=== PATIENT | male | born 1965 | race American Indian/Alaskan Native ===

== ENCOUNTER 2016-06-15 13:48 | Emergency (ER) | payer MEDICAID, OTHER ==
[2016-06-15 13:56] VITALS: BP 149/95
--- NOTE | 2016-06-15 14:05 | EDM.PDOC ---
ED HPI Skin/Rash - General Chief Complaint: Laceration Stated Complaint: CUT ON LEFT SIDE OF FACE Time Seen by Provider: 06/15/16 13:57 Source: Reports: Patient History Limitations: Reports: No limitations (and) - History of Present Illness INITIAL COMMENTS - FREE TEXT/NARRATIVE: patient fell on some stairs and sustained a laceration to his left ear. No loss of consciousness. laceration along the superior daisy of anti-helix Timing: Reports: still present Location, Skin: Reports: head, other (left ear antihelix) - Related Data Allergies Allergy/AdvReac Type Severity Reaction Status Date / Time No Known Allergies Allergy Verified 03/17/16 12:23 Home Meds: Ambulatory Orders Medication Instructions Recorded Confirmed Acetaminophen [Tylenol] 4 tab PO ASDIRECTED PRN 03/17/16 06/15/16 Lisinopril [Lisinopril] 20 mg PO DAILY 03/17/16 06/15/16 atorvaSTATin [Lipitor] 20 mg PO DAILY 03/17/16 06/15/16 Aspirin 1 tab PO DAILY 06/15/16 06/15/16 Naproxen [Naprosyn] 1 tab PO BID 06/15/16 06/15/16 Past Medical History HEENT History: Reports: Impaired vision Other HEENT History: needs glasses Cardiovascular History: Reports: High cholesterol, Hypertension Respiratory History: Reports: None Gastrointestinal History: Reports: GERD Genitourinary History: Reports: None Musculoskeletal History: Reports: RA Neurological History: Reports: None Psychiatric History: Reports: None Endocrine/Metabolic History: Reports: None Hematologic History: Reports: None Immunologic History: Reports: None Oncologic (Cancer) History: Reports: None Dermatologic History: Reports: None - Infectious Disease History Infectious Disease History: Reports: Chicken pox - Past Surgical History Head Surgeries/Procedures: Reports: None GI Surgical History: Reports: EGD Social & Family History - Tobacco Use Smoking Status *Q: Current Every Day Smoker Years of Tobacco use: 37 Packs/Tins Daily: 0.5 Used Tobacco, but Quit: No Second Hand Smoke Exposure: No - Caffeine Use Caffeine Use: Reports: Coffee - Recreational Drug Use Recreational Drug Use: No ED ROS GENERAL - Review of Systems Review Of Systems: ROS reveals no pertinent complaints other than HPI. ED EXAM, SKIN/RASH Exam: See Below Exam Limited By: No limitations General Appearance: alert, WD/WN, no apparent distress Ears: other (laceration to left year over the marcy and antihelix. No injury to cartilage. 'V' shape laceration.) Throat/Mouth: Normal oropharynx Head: atraumatic, normocephalic Neck: normal inspection ED SKIN PROCEDURES - Laceration/Wound Repair Left Ear Lac/wound length in cm: 3 ('V' shape laceration) Appearance: superficial Distal NVT: neuro & vascular intact Progress/Comments: Good approximation of laceration. Bleeding controlled with surgicel. Dermabond used with good approximation. Patient tolerated well. Course - Vital Signs Last Recorded V/S: Last Vital Signs Temp 98.7 F 06/15/16 13:55 Pulse 69 06/15/16 13:55 Resp 20 06/15/16 13:55 BP 149/95 H 06/15/16 13:55 Pulse Ox 98 06/15/16 13:55 - Orders/Labs/Meds Meds: Medications Discontinued Medications Generic Name Dose Route Start Last Admin Trade Name Freq PRN Reason Stop Dose Admin Hydrocodone Bitart/Acetaminophen 1 tab 06/15/16 14:18 06/15/16 14:25 [place] 325-10 Mg PO 06/15/16 14:19 1 tab ONETIME ONE Administration Departure - Departure Time of Disposition: 14:50 Disposition: Home, Self-Care 01 Condition: good Clinical Impression: Laceration of ear region Qualifiers: Encounter type: initial encounter Laterality: left Qualified Code(s): S01.312A - Laceration without foreign body of left ear, initial encounter Instructions: Stitches, Shelly, or Adhesive Wound Closure, [id number], Laceration Care, Adult, [id number] Forms: ED Department Discharge Additional Instructions: continue with naproxen as needed. Apply ice to the ear for 10-15 minutes at a time. Recheck as needed. Call or return if any problems, questions or concerns
[2016-06-15] MEDS ORDERED: Acetaminophen/HYDROcodone 325-10 MG Tab PO ONE (14:18)
== END 2016-06-15 15:02 | disposition home or self-care (01) ==
LOC: DL.ED 13:48
DX: S01.312A Laceration without foreign body of left ear, initial encounter (principal); E78.00 Pure hypercholesterolemia, unspecified; I10 Essential (primary) hypertension; K21.9 Gastro-esophageal reflux disease without esophagitis; M06.9 Rheumatoid arthritis, unspecified; F17.210 Nicotine dependence, cigarettes, uncomplicated; W10.9XXA Fall (on) (from) unspecified stairs and steps, initial encounter
CPT/HCPCS: 12013; 99282; A9270

== ENCOUNTER 2020-02-22 11:11 | Emergency (ER) | payer MEDICAID, OTHER ==
[2020-02-22 12:07] LABS: ANION GAP 12.8 mEq/L (7-13); CHLORIDE,CL 103 mmol/L (98-107); SODIUM,NA 138 mmol/L (136-145)
[2020-02-22] MEDS ORDERED: Heparin Sodium 5,000 Units/ML Vial IVPUSH ONE (12:25)
[2020-02-22] MEDS ORDERED: Morphine 2 MG/ML SYRINGE IVPUSH ONE (12:26)
[2020-02-22] MEDS ORDERED: Aspirin 81 MG Tab.Chew PO ONE (12:26)
[2020-02-22] MEDS ORDERED: Heparin Sodium/0.45% NaCl 25,000 UNITS/500 ML BAG IV SCH (12:30)
--- NOTE | 2020-02-22 12:33 | EDM.PDOC ---
ED HPI GENERAL MEDICAL PROBLEM - General Chief Complaint: Neuro Symptoms/Deficits Stated Complaint: LEFT ARM NUMB, CHEST PAIN, HURTS TO MOVE Time Seen by Provider: 02/22/20 12:00 Source of Information: Reports: Patient, RN, RN Notes Reviewed History Limitations: Reports: No Limitations - History of Present Illness INITIAL COMMENTS - FREE TEXT/NARRATIVE: Patient presents to the ED via personal vehicle with complaints of chest pain, palpitations, and left arm weakness. The patient states the pain began this morning at approximately 0900 and has maintained over that time. He characterizes the pain as sharp in nature and states is is localized the left chest; this pain has been causing weakness in his left arm. He denies fever, shaking chills, recent illness, vision changes, headache, shortness of breath, nausea, vomiting, diarrhea, melena, or hematochezia. The patient does attest to methamphetamine and cannabis use last night, stating he smoked both substances. chest Pain Score (Numeric/FACES): 7 - Related Data Allergies Allergy/AdvReac Type Severity Reaction Status Date / Time No Known Allergies Allergy Verified 02/22/20 11:29 Home Meds: Home Meds . [No Known Home Meds] 02/22/20 [History] Past Medical History HEENT History: Reports: Impaired Vision Other HEENT History: needs glasses, occasional blurred vision Cardiovascular History: Reports: High Cholesterol, Hypertension Respiratory History: Reports: None Gastrointestinal History: Reports: GERD, Other (See Below) Other Gastrointestinal History: LACTOSE INTOLERANCE Genitourinary History: Reports: None Musculoskeletal History: Reports: Back Pain, Chronic, RA Neurological History: Reports: None, Headaches, Chronic Psychiatric History: Reports: None Endocrine/Metabolic History: Reports: Diabetes, Type II, Obesity/BMI 30+ Hematologic History: Reports: None Immunologic History: Reports: None Oncologic (Cancer) History: Reports: None Dermatologic History: Reports: None - Infectious Disease History Infectious Disease History: Reports: Chicken Pox, Measles - Past Surgical History Head Surgeries/Procedures: Reports: None HEENT Surgical History: Reports: None Cardiovascular Surgical History: Reports: None Respiratory Surgical History: Reports: None GI Surgical History: Reports: Cholecystectomy, EGD, Hernia, Abdominal, Other (See Below) Other GI Surgeries/Procedures: Umbilical hernia Musculoskeletal Surgical History: Reports: None Social & Family History - Family History Family Medical History: No Pertinent Family History - Tobacco Use Tobacco Use Status *Q: Current Every Day Tobacco User Years of Tobacco use: 40 Packs/Tins Daily: 1 Used Tobacco, but Quit: No - Caffeine Use Caffeine Use: Reports: Coffee Caffeine Use Comment: 12 cups daily - Recreational Drug Use Recreational Drug Use: Yes Recreational Drug Type: Reports: Marijuana/Hashish Recreational Drug Use Frequency: Weekly ED ROS GENERAL - Review of Systems Review Of Systems: Comprehensive ROS is negative, except as noted in HPI. ED EXAM, GENERAL - Physical Exam Exam: See Below Exam Limited By: No Limitations General Appearance: Alert, Mild Distress (d/t chest pain) Eye Exam: Bilateral Eye: EOMI, Normal Inspection, PERRL (4mm) Throat/Mouth: Normal Inspection, Normal Voice, No Airway Compromise Head: Atraumatic, Normocephalic Neck: Normal Inspection, Supple, Non-Tender, Full Range of Motion Respiratory/Chest: No Respiratory Distress, Lungs Clear, Normal Breath Sounds, No Accessory Muscle Use, Chest Non-Tender Cardiovascular: Normal Peripheral Pulses, Regular Rate, Rhythm, No Edema, No Gallop, No JVD, No Murmur, No Rub Peripheral Pulses: 2+: Radial (L), Radial (R), Dorsalis Pedis (L), Dorsalis Pedis (R) GI/Abdominal: Normal Bowel Sounds, Soft, Non-Tender, No Organomegaly, No Abnormal Bruit, No Mass (Male) Exam: Deferred Rectal (Males) Exam: Deferred Back Exam: Full Range of Motion Extremities: Normal Inspection, Normal Range of Motion, Non-Tender, Normal Capillary Refill, No Pedal Edema Neurological: Alert, Oriented, CN II-XII Intact, Normal Cognition, Normal Gait, No Motor/Sensory Deficits Psychiatric: Anxious, Tearful Skin Exam: Warm, Intact, Normal Color, No Rash, Diaphoretic. No: Ecchymosis, Erythema, Jaundice, Mottled, Pallor, Petechiae #1 Interpretation EKG Date: 02/22/20 Time: 11:19 Rhythm: NSR Rate (Beats/Min): 63 [place]: Normal P-Wave: Present QRS: Wide ST-T: Normal QT: Normal Comparison: NA - No Prior EKG EKG Interpretation Comments: NSR; No evidence of acute ischemia Course - Vital Signs Last Recorded V/S: Last Vital Signs Temp 97.2 F 02/22/20 11:27 Pulse 110 H 02/22/20 14:21 Resp 20 02/22/20 11:27 BP 114/89 02/22/20 14:21 Pulse Ox 100 02/22/20 11:27 - Orders/Labs/Meds Orders: Active Orders 24 hr Category Date Time Status EKG Documentation Completion [RC] STAT Care 02/22/20 11:17 Active Amiodarone In Dextrose,Iso-Osm [Nexterone in Dextrose Med 02/22/20 14:00 Active 360 MG/200 ML] 360 mg in 200 ml IV ASDIRECTED Heparin Sodium/0.45% NaCl [Heparin 25,000 Units in 1/2 Med 02/22/20 12:30 Active NS 500 ML] 25,000 units in 500 ml IV TITRATE Medication Orders Heparin Sodium/Sodium Chloride (Heparin 25,000 Units In 1/2 Ns 500 Ml) 25,000 units in 500 mls @ 23.601 mls/hr IV TITRATE GIULIANO; Protocol Last Admin: 02/22/20 12:58 Dose: 12 units/kg/hr, 23.601 mls/hr Documented by: LADARIUS Cosigned by: SYLLMEG Amiodarone HCl/Dextrose (Nexterone In Dextrose 360 Mg/200 Ml) 360 mg in 200 mls @ 33.333 mls/hr IV ASDIRECTED GIULIANO; Protocol Labs: Laboratory Tests 02/22/20 02/22/20 02/22/20 Range/Units 11:17 11:27 11:27 WBC 7.5 (5.0-10.0) 10^3/uL RBC 4.77 (4.6-6.2) 10^6/uL Hgb 14.7 (14.0-18.0) g/dL Hct 42.9 (40.0-54.0) % MCV 89.9 D (80-100) fL MCH 30.8 (27.0-34.0) pg MCHC 34.3 (33.0-35.0) g/dL Plt Count 209 (150-450) 10^3/uL Neut % (Auto) 65.3 (42.2-75.2) % Lymph % (Auto) 25.6 (20.5-50.1) % Aiken % (Auto) 7.6 (2-8) % Eos % (Auto) 1.1 (1.0-3.0) % Baso % (Auto) 0.4 (0.0-1.0) % PT 9.9 (9.0-12.0) SEC INR 1.0 (0.9-1.2) D-Dimer, Quantitative (0-400) ng/mL Sodium (136-145) mmol/L Potassium (3.5-5.1) mmol/L Chloride (98-107) mmol/L Carbon Dioxide (21-32) mmol/L Anion Gap (7-13) mEq/L BUN (7-18) mg/dL Creatinine (0.70-1.30) mg/dL Est Cr Clr Drug Dosing mL/min Estimated GFR (MDRD) BUN/Creatinine Ratio (No establ ref range) Glucose (74-99) mg/dL POC Glucose 275 H (70-105) mg/dl Calcium (8.5-10.1) mg/dL Magnesium (1.8-2.4) mg/dL Total Bilirubin (0.2-1.0) mg/dL AST (15-37) U/L ALT (16-63) U/L Alkaline Phosphatase (46-116) U/L Troponin I (0.000-0.056) ng/mL C-Reactive Protein (0.0-0.9) mg/dL B-Natriuretic Peptide (0-100) pg/ml Total Protein (6.4-8.2) g/dL Albumin (3.4-5.0) g/dL Globulin Albumin/Globulin Ratio Urine Color (YELLOW) Urine Appearance (CLEAR) Urine pH (5.0-9.0) Ur Specific Dix (1.005-1.030) Urine Protein (NEGATIVE) Urine Glucose (UA) (NEGATIVE) Urine Ketones (NEGATIVE) Urine Occult Blood (NEGATIVE) Urine Nitrite (NEGATIVE) Urine Bilirubin (NEGATIVE) Urine Urobilinogen (0.2-1.0) mg/dL Ur Leukocyte Esterase (NEGATIVE) Urine Opiates Screen (NEGATIVE) Ur Oxycodone Screen (NEGATIVE) Urine Methadone Screen (NEGATIVE) Ur Barbiturates Screen (NEGATIVE) U Tricyclic Antidepress (NEGATIVE) Ur Phencyclidine Scrn (NEGATIVE) Ur Amphetamine Screen (NEGATIVE) U Methamphetamines Scrn (NEGATIVE) Urine MDMA Screen (NEGATIVE) U Benzodiazepines Scrn (NEGATIVE) Urine Cocaine Screen (NEGATIVE) U Marijuana (THC) Screen (NEGATIVE) Ethyl Alcohol (0) mg/dL SARS-CoV-2 RNA (KARELY) (NEGATIVE) 02/22/20 02/22/20 02/22/20 Range/Units 11:27 11:27 12:33 WBC (5.0-10.0) 10^3/uL RBC (4.6-6.2) 10^6/uL Hgb (14.0-18.0) g/dL Hct (40.0-54.0) % MCV (80-100) fL MCH (27.0-34.0) pg MCHC (33.0-35.0) g/dL Plt Count (150-450) 10^3/uL Neut % (Auto) (42.2-75.2) % Lymph % (Auto) (20.5-50.1) % Aiken % (Auto) (2-8) % Eos % (Auto) (1.0-3.0) % Baso % (Auto) (0.0-1.0) % PT (9.0-12.0) SEC INR (0.9-1.2) D-Dimer, Quantitative < 100 (0-400) ng/mL Sodium 138 (136-145) mmol/L Potassium 3.8 (3.5-5.1) mmol/L Chloride 103 (98-107) mmol/L Carbon Dioxide 26 (21-32) mmol/L Anion Gap 12.8 (7-13) mEq/L BUN 17 (7-18) mg/dL Creatinine 0.99 (0.70-1.30) mg/dL Est Cr Clr Drug Dosing 103.51 mL/min Estimated GFR (MDRD) > 60 BUN/Creatinine Ratio 17.2 (No establ ref range) Glucose 293 H (74-99) mg/dL POC Glucose (70-105) mg/dl Calcium 8.4 L (8.5-10.1) mg/dL Magnesium 1.8 (1.8-2.4) mg/dL Total Bilirubin 0.3 (0.2-1.0) mg/dL AST 18 (15-37) U/L ALT 25 (16-63) U/L Alkaline Phosphatase 82 (46-116) U/L Troponin I 0.460 H* (0.000-0.056) ng/mL C-Reactive Protein 0.9 (0.0-0.9) mg/dL B-Natriuretic Peptide 6 (0-100) pg/ml Total Protein 7.0 (6.4-8.2) g/dL Albumin 3.8 (3.4-5.0) g/dL Globulin 3.2 Albumin/Globulin Ratio 1.2 Urine Color Yellow (YELLOW) Urine Appearance Clear (CLEAR) Urine pH 6.5 (5.0-9.0) Ur Specific Dix 1.015 (1.005-1.030) Urine Protein Negative (NEGATIVE) Urine Glucose (UA) >=1000 H (NEGATIVE) Urine Ketones Negative (NEGATIVE) Urine Occult Blood Negative (NEGATIVE) Urine Nitrite Negative (NEGATIVE) Urine Bilirubin Negative (NEGATIVE) Urine Urobilinogen 0.2 (0.2-1.0) mg/dL Ur Leukocyte Esterase Negative (NEGATIVE) Urine Opiates Screen (NEGATIVE) Ur Oxycodone Screen (NEGATIVE) Urine Methadone Screen (NEGATIVE) Ur Barbiturates Screen (NEGATIVE) U Tricyclic Antidepress (NEGATIVE) Ur Phencyclidine Scrn (NEGATIVE) Ur Amphetamine Screen (NEGATIVE) U Methamphetamines Scrn (NEGATIVE) Urine MDMA Screen (NEGATIVE) U Benzodiazepines Scrn (NEGATIVE) Urine Cocaine Screen (NEGATIVE) U Marijuana (THC) Screen (NEGATIVE) Ethyl Alcohol < 3 (0) mg/dL SARS-CoV-2 RNA (KARELY) (NEGATIVE) 02/22/20 02/22/20 Range/Units 12:33 13:14 WBC (5.0-10.0) 10^3/uL RBC (4.6-6.2) 10^6/uL Hgb (14.0-18.0) g/dL Hct (40.0-54.0) % MCV (80-100) fL MCH (27.0-34.0) pg MCHC (33.0-35.0) g/dL Plt Count (150-450) 10^3/uL Neut % (Auto) (42.2-75.2) % Lymph % (Auto) (20.5-50.1) % Aiken % (Auto) (2-8) % Eos % (Auto) (1.0-3.0) % Baso % (Auto) (0.0-1.0) % PT (9.0-12.0) SEC INR (0.9-1.2) D-Dimer, Quantitative (0-400) ng/mL Sodium (136-145) mmol/L Potassium (3.5-5.1) mmol/L Chloride (98-107) mmol/L Carbon Dioxide (21-32) mmol/L Anion Gap (7-13) mEq/L BUN (7-18) mg/dL Creatinine (0.70-1.30) mg/dL Est Cr Clr Drug Dosing mL/min Estimated GFR (MDRD) BUN/Creatinine Ratio (No establ ref range) Glucose (74-99) mg/dL POC Glucose (70-105) mg/dl Calcium (8.5-10.1) mg/dL Magnesium (1.8-2.4) mg/dL Total Bilirubin (0.2-1.0) mg/dL AST (15-37) U/L ALT (16-63) U/L Alkaline Phosphatase (46-116) U/L Troponin I (0.000-0.056) ng/mL C-Reactive Protein (0.0-0.9) mg/dL B-Natriuretic Peptide (0-100) pg/ml Total Protein (6.4-8.2) g/dL Albumin (3.4-5.0) g/dL Globulin Albumin/Globulin Ratio Urine Color (YELLOW) Urine Appearance (CLEAR) Urine pH (5.0-9.0) Ur Specific Dix (1.005-1.030) Urine Protein (NEGATIVE) Urine Glucose (UA) (NEGATIVE) Urine Ketones (NEGATIVE) Urine Occult Blood (NEGATIVE) Urine Nitrite (NEGATIVE) Urine Bilirubin (NEGATIVE) Urine Urobilinogen (0.2-1.0) mg/dL Ur Leukocyte Esterase (NEGATIVE) Urine Opiates Screen Negative (NEGATIVE) Ur Oxycodone Screen Negative (NEGATIVE) Urine Methadone Screen Negative (NEGATIVE) Ur Barbiturates Screen Negative (NEGATIVE) U Tricyclic Antidepress Negative (NEGATIVE) Ur Phencyclidine Scrn Negative (NEGATIVE) Ur Amphetamine Screen Positive H (NEGATIVE) U Methamphetamines Scrn Positive H (NEGATIVE) Urine MDMA Screen Negative (NEGATIVE) U Benzodiazepines Scrn Negative (NEGATIVE) Urine Cocaine Screen Negative (NEGATIVE) U Marijuana (THC) Screen Positive H (NEGATIVE) Ethyl Alcohol (0) mg/dL SARS-CoV-2 RNA (KARELY) Negative (NEGATIVE) Meds: Medications Generic Name Dose Route Start Last Admin Trade Name Freq PRN Reason Stop Dose Admin Heparin Sodium/Sodium Chloride 25,000 units in 500 mls @ 23.601 mls/hr 02/22/20 12:30 02/22/20 12:58 Heparin 25,000 Units In 1/2 Ns 500 Ml IV 12 units/kg/hr TITRATE GIULIANO 23.601 mls/hr Administration Protocol 12 UNITS/KG/HR Amiodarone HCl/Dextrose 360 mg in 200 mls @ 33.333 mls/hr 02/22/20 14:00 Nexterone In Dextrose 360 Mg/200 Ml IV ASDIRECTED GIULIANO Protocol Discontinued Medications Generic Name Dose Route Start Last Admin Trade Name Freq PRN Reason Stop Dose Admin Aspirin 324 mg 02/22/20 12:26 02/22/20 12:39 Aspirin PO 02/22/20 12:27 324 mg ONETIME ONE Administration Heparin Sodium (Porcine) 4,000 units 02/22/20 12:25 02/22/20 12:40 Heparin Sodium IVPUSH 02/22/20 12:26 4,000 units .BOLUS ONE Administration Amiodarone HCl/Dextrose 100 mls @ 600 mls/hr 02/22/20 13:54 02/22/20 13:59 Nexterone In Dextrose 150 Mg/100 Ml IV 02/22/20 14:03 600 mls/hr .BOLUS ONE Administration Protocol Metoprolol Tartrate 5 mg 02/22/20 14:17 02/22/20 14:21 Lopressor IVPUSH 02/22/20 14:18 5 mg ONETIME ONE Administration Morphine Sulfate 2 mg 02/22/20 12:26 02/22/20 12:43 Morphine IVPUSH 02/22/20 12:27 2 mg ONETIME ONE Administration Ondansetron HCl 4 mg 02/22/20 12:38 02/22/20 12:56 Zofran IVPUSH 02/22/20 12:39 4 mg ONETIME ONE Administration - Re-Assessments/Exams Free Text/Narrative Re-Assessment/Exam: 02/22/20 EKG NSR; No evidence of infection via CBC Troponin elevated at 0.4 Patient given Morphine 2mg IVP x1 for continued chest pain. Heparin gtt initiation at 12u/kg/hr along with 4000u bolus. ASA administered x1. Case discussed with Dr. chen [facility] in [place] who kindly agreed to accept the patient for transfer/admission. Patient experiencing Tachy arrhythmias prior to arrival of EMS. Dr. López prefers Metoprolol 5mg IVP x1 for treatment instead of amiodarone. Metoprolol administered prior to patient's discharge with EMS. Rhythm strips sent to one call to r/o STEMI. STEMI r/o prior to patient's discharge. Departure - Departure Time of Disposition: 14:51 Disposition: DC/Tfer to Acute Hospital 02 Reason for Transfer *Q: Primary PCI Indicated Condition: Fair Clinical Impression: NSTEMI (non-ST elevated myocardial infarction), Methamphetamine abuse, Elevated troponin Forms: ED Department Discharge, Interfacility Transfer JENNIFER Sepsis Event Note (ED) - Evaluation Sepsis Screening Result: No Definite Risk - Focused Exam Vital Signs: Vital Signs Temp Pulse Pulse Resp BP BP Pulse Ox 02/22/20 14:21 110 H 114/89 02/22/20 11:27 97.2 F 67 20 157/95 H 100 - My Orders Last 24 Hours: My Active Orders 02/22/20 12:30 Heparin Sodium/0.45% NaCl [Heparin 25,000 Units in 1/2 NS 500 ML] 25,000 units in 500 ml IV TITRATE 02/22/20 14:00 Amiodarone In Dextrose,Iso-Osm [Nexterone in Dextrose 360 MG/200 ML] 360 mg in 200 ml IV ASDIRECTED - Assessment/Plan Last 24 Hours: My Active Orders 02/22/20 12:30 Heparin Sodium/0.45% NaCl [Heparin 25,000 Units in 1/2 NS 500 ML] 25,000 units in 500 ml IV TITRATE 02/22/20 14:00 Amiodarone In Dextrose,Iso-Osm [Nexterone in Dextrose 360 MG/200 ML] 360 mg in 200 ml IV ASDIRECTED
[2020-02-22] MEDS ORDERED: Ondansetron 4 MG/2 ML SDV IVPUSH ONE (12:38)
[2020-02-22 12:49] LABS: AMPHETAMINES,URINE POSITIVE (NEGATIVE); BARBITURATES,URINE NEGATIVE (NEGATIVE); BENZODIAZEPINE,URINE NEGATIVE (NEGATIVE); MDMA (ECSTASY), URINE NEGATIVE (NEGATIVE); METHADONE,URINE NEGATIVE (NEGATIVE); METHAMPHETAMINES,URINE POSITIVE (NEGATIVE); OPIATES,URINE NEGATIVE (NEGATIVE); OXYCODONE,URINE NEGATIVE (NEGATIVE); PHENCYCLIDINE,URINE NEGATIVE (NEGATIVE); TCA,URINE NEGATIVE (NEGATIVE)
--- NOTE | 2020-02-22 12:54 | CR ---
EXAMINATION: Chest 1V Frontal SEX: Male AGE: 55 years CLINICAL HISTORY: 55-year-old male chest pain. No comparison films Interpretation. 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 Rotational artifact. Normal cardiac silhouette (size and configuration). No pulmonary vascular congestion, cephalization of flow, alveolar edema or dependent pleural effusion. No lung mass or hilar lymphadenopathy. No focal lobar consolidation (infiltrate/atelectasis). No air bronchograms. No peripheral "groundglass" interstitial lung infiltrates. No pneumothorax or pneumomediastinum. CONCLUSION: No acute cardiopulmonary abnormality.
[2020-02-22] MEDS ORDERED: Metoprolol Tartrate 5 MG/5 ML SDV IVPUSH ONE (14:17)
[2020-02-22 14:22] VITALS: BP 114/89; PULSE 110
== END 2020-02-22 14:32 ==
LOC: DL.ED 11:11
DX: I21.4 Non-ST elevation (NSTEMI) myocardial infarction (principal); R79.89 Other specified abnormal findings of blood chemistry; F15.10 Other stimulant abuse, uncomplicated; I10 Essential (primary) hypertension; E11.9 Type 2 diabetes mellitus without complications; F17.210 Nicotine dependence, cigarettes, uncomplicated; E66.9 Obesity, unspecified; Z68.26 Body mass index [BMI] 26.0-26.9, adult; Z20.828 Contact with and (suspected) exposure to other viral communicable diseases
CPT/HCPCS: 36415; 71045; 80053; 80305-QW; 80307; 81003; 82962; 83735; 83880; 84484; 85025; 85379; 85610; 86140; 93005; 93010; 96365; 96375; 99284; 99285-25; A9270-GY; J0282; J1644; J2270; J2405; J3490; U0002

== ENCOUNTER 2024-03-11 12:49 | Emergency (ER) | payer SELFPAY ==
[2024-03-11] MEDS ORDERED: Sodium Chloride 0.9% 10 ML Syringe FLUSH PRN ×2 (13:00)
[2024-03-11 13:19] LABS: BASOPHILS PERCENT AUTO 0.3 % (0.0-1.0); EOSINOPHILS PERCENT AUTO 0.8 % (1.0-3.0); HEMATOCRIT 47.1 % (40.0-54.0); HEMOGLOBIN 15.6 g/dL (14.0-18.0); MEAN CORPUSCULAR HEMOGLOBIN 30.8 pg (27.0-34.0); MEAN CORPUSCULAR HGB CONC 33.1 g/dL (33.0-35.0); MEAN CORPUSCULAR VOLUME 92.9 fL (80-100); MONOCYTES PERCENT AUTO 8.3 % (2-8); NEUTROPHILS PERCENT AUTO 58.6 % (42.2-75.2); PLATELET COUNT,PLT 203 10^3/uL (150-450); RED BLOOD CELL COUNT 5.07 10^6/uL (4.6-6.2); WHITE BLOOD CELL COUNT,WBC 7.8 10^3/uL (5.0-10.0)
[2024-03-11 13:35] LABS: PROTHROMBIN TIME 9.9 SEC (9.0-12.0)
[2024-03-11 13:42] LABS: A/G RATIO 1.1; ALANINE AMINOTRANSFERASE,ALT 20 U/L (16-63); ALBUMIN 4.2 g/dL (3.4-5.0); ALKALINE PHOSPHATASE 80 U/L (46-116); ASPARTATE AMNIOTRANSFERASE,AST 20 U/L (15-37); BILIRUBIN TOTAL 0.4 mg/dL (0.2-1.0); BLOOD UREA NITROGEN,BUN 12 mg/dL (7-18); BUN/CREATININE RATIO 11.3 (No establ ref range); CALCIUM 9.1 mg/dL (8.5-10.1); CARBON DIOXIDE,CO2 29 mmol/L (21-32); CHLORIDE,CL 103 mmol/L (98-107); CREATININE 1.06 mg/dL (0.70-1.30); GLUCOSE RANDOM 116 mg/dL (70-99); PROTEIN TOTAL,TP 7.9 g/dL (6.4-8.2); SODIUM,NA 141 mmol/L (136-145)
[2024-03-11 13:48] LABS: ESTIMATED GFR 81 mL/min (>=60)
[2024-03-11 14:26] VITALS: BP 119/86; PULSE 54
== END 2024-03-11 14:27 | disposition home or self-care (01) ==
LOC: DL.ED 12:49
DX: R07.89 Other chest pain (principal); I10 Essential (primary) hypertension; E11.9 Type 2 diabetes mellitus without complications; E66.9 Obesity, unspecified; Z90.49 Acquired absence of other specified parts of digestive tract
CPT/HCPCS: 36415; 71045; 80053; 84484; 85025; 85610; 93005; 93010; 99284; 99285